=== PATIENT | male | born 1955 | race Caucasian/White ===

== ENCOUNTER → 2016-05-12 | Outpatient (CLI) | payer BC ==
[~2016-05-12] MED LIST: CATHETER FLUSH 10 ML SYR IV PRN; CHOL100055 PO; CYAN500T2 PO; FEXO1TAB42 PO; IOHEXOL 350 MG/ML 100 ML (OMNIPAQUE 350) VIAL IV ONE; NS 100 ML (IVPB) BAG IV ONE; PNT40TEC PO; TEST200V3 IM
[2016-05-12 08:52] LABS: BLOOD UREA NITROGEN 15 MG/DL (7-18); BUN/CREATININE RATIO 14; CREATININE SERUM 1.05 MG/DL (0.60-1.30); GFR ESTIMATED > 60
--- NOTE | 2016-05-12 09:30 | Diagnostic Imaging Report ---
PROCEDURE: CT chest with contrast only. TECHNIQUE: Multiple contiguous axial images were obtained through the chest after administration of intravenous contrast. INDICATION: Followup pulmonary nodule. COMPARISON: 04/29/2015 FINDINGS: Evaluation of lung petit demonstrates benign calcified granuloma within the posterior right lower lobe. Slightly more superiorly also within the right lower lobe, there is a noncalcified 3-4 mm micronodule (image 36, series 2). This is stable compared to 04/29/2015. No other pulmonary nodules or masses are seen on either side. There is no focal consolidation, pleural effusion, or pneumothorax. Cardiomediastinal structures again demonstrate multiple slightly prominent mediastinal lymph nodes. Reference subcarinal lymph node measures approximately 1.3 cm in shortest axis dimension. This is stable compared to prior exam. Lymph node interposed between the trachea and SVC measures approximately 9 mm in shortest axis dimension. This too is stable. No new abnormal adenopathy is seen within the mediastinum, franky, nor axilla. Right thyroid lobe is absent. Bony structures show no acute abnormalities. No lytic or blastic bony lesions are seen. Included portions of the upper abdomen are unremarkable. IMPRESSION: 1. Stable pulmonary micronodule and benign calcified granuloma within the right lower lobe. 2. Stable slightly prominent mediastinal lymph nodes. 3. No adverse interval change. Dictated by: Dictated on workstation # [id number]
== END ==
LOC: RAD 08:02
PROVIDERS: ATTEND Nurse Practitioner Family
DX: R93.8 Abnormal findings on diagnostic imaging of other specified body structures (principal); R91.1 Solitary pulmonary nodule
CPT/HCPCS: 36415; 71260; 82565; 84520

== ENCOUNTER → 2016-10-19 | Outpatient (CLI) | payer BC ==
[~2016-10-19] MED LIST changes: -CATHETER FLUSH 10 ML SYR IV PRN; -IOHEXOL 350 MG/ML 100 ML (OMNIPAQUE 350) VIAL IV ONE; -NS 100 ML (IVPB) BAG IV ONE
--- NOTE | 2016-10-19 11:27 | Diagnostic Imaging Report ---
PROCEDURE: US Thyroid. TECHNIQUE: Multiple real-time grayscale images were obtained of the thyroid in various projections. Indication: Followup thyroid nodules. Comparison: 10/09/2015 and 04/02/2015. Discussion: The right thyroid gland is surgically absent. No abnormal mass or fluid within the right thyroidectomy bed. The left thyroid gland is normal in echotexture and size with normal color Doppler blood flow. The left thyroid measures 4.8 x 2.1 x 1.9 cm. Hypoechoic nodules are again noted within the left gland measuring 6 mm and 4 mm respectively, stable. Given long-term stability, these nodules are statistically benign. Recommend yearly sonographic followup. No new nodule identified. No abnormal adjacent lymph nodes identified. Impression: 1. Stable subcentimeter nodules within the left thyroid gland, statistically benign. 2. Status post right thyroidectomy. Dictated by: Dictated on workstation # [id number]
== END | disposition home or self-care (01) ==
LOC: RAD 08:36
PROVIDERS: ATTEND Plastic Surgery Plastic Surgery Within the Head and Neck
DX: E04.2 Nontoxic multinodular goiter (principal); E89.0 Postprocedural hypothyroidism
CPT/HCPCS: 76536

== ENCOUNTER 2016-10-29 06:25 | Outpatient (CLI) | payer BC ==
[2016-10-29] MEDS ORDERED: THYR32.57 PO (14:32)
== END 2016-10-29 14:37 ==
DX: Z01.818 Encounter for other preprocedural examination (principal); Z80.0 Family history of malignant neoplasm of digestive organs

== ENCOUNTER 2016-11-02 07:52 | Day surgery (SDC) | payer BC ==
[~2016-11-02] VITALS: Ht 182.9 cm; Wt 96.6 kg
[~2016-11-02 07:52] MED LIST changes: +THYR32.57 PO
[2016-11-02 08:12] VITALS: BP 136/79
[2016-11-02] MEDS ORDERED: FLUMAZENIL (ROMAZICON) 0.1 MG/ML 5 ML VIAL INJ PRN (08:15)
[2016-11-02] MEDS ORDERED: NS IV 500 ML 500 ML IV SCH (08:15)
[2016-11-02] MEDS ORDERED: NALOXONE 0.4 MG/ML 1 ML (NARCAN) VIAL IVP PRN (08:15)
[2016-11-02] MEDS ORDERED: fentaNYL INJECTION 100 MCG/2 ML AMP ONE ×2 (09:02)
[2016-11-02] MEDS ORDERED: MIDAZOLAM 2 MG/2 ML (VERSED) VIAL ONE ×4 (09:03)
[2016-11-02] MEDS: fentaNYL INJECTION 100 MCG/2 ML AMP IVP PRN ×2 (09:18→09:24)
[2016-11-02] MEDS: MIDAZOLAM 2 MG/2 ML (VERSED) VIAL IVP PRN ×2 (09:19→09:25)
--- NOTE | 2016-11-02 09:41 | Conscious Sedation/ASA ---
Conscious Sedation Pre-Proced Time Reviewed: 08:55 ASA Class: 2 Airway Mallampati Classification: (augustine appropriate class) I. II. III, IV Lungs Heart ASA score ASA 1: a normal healthy patient ASA 2: a patient with a mild systemic disease (mid diabetes, controlled hypertension, obesity ASA 3: a patient with a severe systemic disease that limits activity (angina , COPD, prior Myocardial infarction) ASA 4: a patient with an incapacitating disease that is a constant threat to life (CHF, renal failure) ASA 5: a moribund patient not expected to survive 24 hrs. (ruptured aneurysm) ASA 6: a declared brain patient whose organs are being harvested. For emergent operations, add the letter E after the classification Grade 1 Sedation Plan: Discussed options with patient/fam Note The patient is an appropriate candidate to undergo the planned procedure, sedation, and anesthesia. The patient immediately re-assessed prior to indication. IZABEL NATHAN MD Nov 02, 2016 9:41 am
--- NOTE | 2016-11-02 09:42 | Endoscopy Procedure Report ---
Endoscopy Report Date: Nov 02, 2016 Preoperative Diagnosis: screening. Family history of colon cancer Study Performed: Colonoscopy Procedure Instrument: Colonoscope Endo Procedure/Findings Findings 1.: Normal Recommendations: Recommendations: 1.: Colonscopy in 5 years Copy Copies To 1: JOSHUA JOHN XAVIER M MD Nov 02, 2016 9:42 am
--- NOTE | 2016-11-02 09:42 | Discharge Inst-Simple/Standard ---
Discharge Inst-Standard Discharge Medications New, Converted or Re-Newed RX: Other Patient Instructions/Follow Up Plan of Care/Instructions/FU: repeat colonoscopy in 5 years Activity as Tolerated: Yes Discharge Diet: No Restrictions IZABEL NATHAN MD Nov 02, 2016 9:42 am
[2016-11-02 10:00] VITALS: BP 109/73
[2016-11-02 10:35] VITALS: BP 123/79
[2016-11-02 10:57] VITALS: BP 123/79
--- OUTSIDE RECORDS SUMMARY | 2016-11-02 21:20 | XMS REPORT | Continuity of Care Document ---
Author Author [facility] Organization [facility] Address Unknown Phone Unavailable Allergies Active Description Code Type Severity Reaction Onset Reported/Identified Relationship to Patient Clinical Status Yes No Known Drug Allergies [id number] Drug Allergy Unknown N/ A 10/29/2016 Medications Problems Date Dx Coded Attending Type Code Diagnosis Diagnosed By 07/28/2013 CARLOS LAU, LISA Costa Ot 455.0 INT HEMORRHOID W/O COMPL 07/28/2013 LISA GONZALEZ MD Ot 569.84 ANGIODYSPLASIA INTESTINE (W/O MENT OF HE 07/28/2013 LISA GONZALEZ MD Ot V16.0 FAMILY HX-GI MALIGNANCY 07/28/2013 LISA GONZALEZ MD Ot V76.51 SCREEN MAL NEOP-COLON 08/06/2014 Ot 786.50 08/06/2014 ALEXANDER LAU, CHEYENNE Vila Ot 241.9 08/06/2014 ALEXANDER LAU, CHEYENNE Vila Ot 785.6 08/06/2014 ALEXANDER LAU, CHEYENNE Vila Ot 786.2 08/06/2014 ALEXANDER LAU, CHEYENNE M Ot 785.6 08/06/2014 ALEXANDER LAU, CHEYENNE M Ot 786.05 08/06/2014 ALEXANDER LAU, CHEYENNE M Ot 786.2 08/06/2014 LISA GONZALEZ MD Ot V72.84 08/06/2014 ALEXANDER LAU, CHEYENNE M Ot 785.6 08/06/2014 ALEXANDER LAU, CHEYENNE M Ot 786.6 08/07/2014 ALEXANDER LAU, CHEYENNE M Ot 785.6 08/21/2014 CHEYENNE MUNOZ MD Ot 785.6 10/26/2014 SUDHEER WEATHERS DO Ot 793.11 10/26/2014 SUDHEER WEATHERS DO Ot 793.2 11/05/2014 SUDHEER WEATHERS DO Ot 327.23 OBSTRUCTIVE SLEEP APNEA (ADULT) (PEDIATR 11/05/2014 SUDHEER WEATHERS DO Ot 518.89 OTHER DISEASES OF LUNG, NEC 11/05/2014 SUDHEER WEATHERS DO Ot 530.81 ESOPHAGEAL REFLUX 11/05/2014 SUDHEER WEATHERS DO Ot 793.11 SOLITARY PULMONARY NODULE 11/06/2014 SUDHEER WEATHERS DO Ot 793.11 11/06/2014 SUDHEER WEATHERS DO Ot 793.2 11/15/2014 SUDHEER WEATHERS DO Ot 793.11 11/15/2014 SUDHEER WEATHERS DO Ot 793.2 11/15/2014 SUDHEER WEATHERS DO Ot 793.11 11/15/2014 SUDHEER WEATHERS DO Ot 793.2 04/18/2015 JOSHUA JOHN DO Ot E01.0 05/17/2015 SUDHEER WEATHERS DO Ot R91.1 10/09/2015 CHEYENNE MUNOZ MD Ot 241.9 NONTOX NODUL GOITER NOS 10/09/2015 CHEYENNE MUNOZ MD Ot 785.6 ENLARGEMENT LYMPH NODES 10/09/2015 CHEYENNE MUNOZ MD Ot 786.2 COUGH 10/09/2015 CHEYENNE MUNOZ MD Ot 785.6 ENLARGEMENT LYMPH NODES 10/09/2015 CHEYENNE MUNOZ MD Ot 786.05 SHORTNESS OF BREATH 10/09/2015 CHEYENNE MUNOZ MD Ot 786.2 COUGH 10/09/2015 CARLOS LAU, LISA Costa Ot V72.84 EXAM PRE-OPERATIVE NOS 10/09/2015 CHEYENNE MUNOZ MD Ot 785.6 ENLARGEMENT LYMPH NODES 10/09/2015 CHEYENNE MUNOZ MD Ot 786.6 CHEST SWELLING/MASS/LUMP 10/09/2015 CHEYENNE MUNOZ MD Ot 785.6 ENLARGEMENT LYMPH NODES 10/09/2015 SUDHEER WEATHERS DO Ot 793.11 SOLITARY PULMONARY NODULE 10/09/2015 SUDHEER WEATHERS DO Ot 793.2 NOSP (ABN) FINDINGS ON RADIOLOGICAL OT 10/09/2015 SUDHEER WEATHERS DO Ot 793.11 SOLITARY PULMONARY NODULE 10/09/2015 SUDHEER WEATHERS DO Ot 793.2 NOSP (ABN) FINDINGS ON RADIOLOGICAL OT 10/09/2015 SUDHEER WEATHERS DO Ot 793.11 SOLITARY PULMONARY NODULE 10/09/2015 SUDHEER WEATHERS DO Ot 793.2 NOSP (ABN) FINDINGS ON RADIOLOGICAL OT 10/09/2015 SUDHEER WEATHERS DO Ot R91.1 SOLITARY PULMONARY NODULE 10/09/2015 JOSHUA JOHN DO Ot 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 ( ENDEM 10/10/2015 HIRAL LAU, YASMIN Gaytan Ot E04.2 NONTOXIC MULTINODULAR GOITER 10/25/2015 HIRAL LAU, YASMIN Gaytan Ot E04.2 NONTOXIC MULTINODULAR GOITER 12/24/2015 ALEXANDER LAU, CHEYENNE Vila Ot 241.9 NONTOX NODUL GOITER NOS 12/24/2015 CHEYENNE MUNOZ MD Ot 785.6 ENLARGEMENT LYMPH NODES 12/24/2015 CHEYENNE MUNOZ MD Ot 786.2 COUGH 12/24/2015 CHEYENNE MUNOZ MD Ot 785.6 ENLARGEMENT LYMPH NODES 12/24/2015 CHEYENNE MUNOZ MD Ot 786.05 SHORTNESS OF BREATH 12/24/2015 CHEYENNE MUNOZ MD Ot 786.2 COUGH 12/24/2015 CARLOS LAU, LISA Costa Ot V72.84 EXAM PRE-OPERATIVE NOS 12/24/2015 CHEYENNE MUNOZ MD Ot 785.6 ENLARGEMENT LYMPH NODES 12/24/2015 CHEYENNE MUNOZ MD Ot 786.6 CHEST SWELLING/MASS/LUMP 12/24/2015 CHEYENNE MUNOZ MD Ot 785.6 ENLARGEMENT LYMPH NODES 12/24/2015 SUDHEER WEATHERS DO Ot 793.11 SOLITARY PULMONARY NODULE 12/24/2015 SUDHEER WEATHERS DO Ot 793.2 NOSP (ABN) FINDINGS ON RADIOLOGICAL OT 12/24/2015 SUDHEER WEATHERS DO Ot 793.11 SOLITARY PULMONARY NODULE 12/24/2015 SUDHEER WEATHERS DO Ot 793.2 NOSP (ABN) FINDINGS ON RADIOLOGICAL OT 12/24/2015 SUDHEER WEATHERS DO Ot 793.11 SOLITARY PULMONARY NODULE 12/24/2015 SUDHEER WEATHERS DO Ot 793.2 NOSP (ABN) FINDINGS ON RADIOLOGICAL OT 12/24/2015 SUDHEER WEATHERS DO Ot R91.1 SOLITARY PULMONARY NODULE 12/24/2015 JOSHUA JOHN DO Ot 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 ( ENDEM 12/24/2015 HIRAL LAU, YASMIN Gaytan Ot E04.2 NONTOXIC MULTINODULAR GOITER 12/25/2015 JOSHUA JOHN DO Ot R42 DIZZINESS AND GIDDINESS 01/09/2016 JOSHUA JOHN DO Ot R42 DIZZINESS AND GIDDINESS 03/30/2016 ALEXANDER LAU, CHEYENNE Vila Ot 241.9 NONTOX NODUL GOITER NOS 03/30/2016 ALEXANDER LAU, CHEYENNE Vila Ot 785.6 ENLARGEMENT LYMPH NODES 03/30/2016 ALEXANDER LAU, CHEYENNE Vila Ot 786.2 COUGH 03/30/2016 CHEYENNE MUNOZ MD Ot 785.6 ENLARGEMENT LYMPH NODES 03/30/2016 ALEXANDER LAU, CHEYENNE Vila Ot 786.05 SHORTNESS OF BREATH 03/30/2016 CHEYENNE MUNOZ MD Ot 786.2 COUGH 03/30/2016 CARLOS LAU, LISA Costa Ot V72.84 EXAM PRE-OPERATIVE NOS 03/30/2016 ALEXANDER LAU, CHEYENNE Vila Ot 785.6 ENLARGEMENT LYMPH NODES 03/30/2016 CHEYENNE MUNOZ MD Ot 786.6 CHEST SWELLING/MASS/LUMP 03/30/2016 CHEYENNE MUNOZ MD Ot 785.6 ENLARGEMENT LYMPH NODES 03/30/2016 SUDHEER WEATHERS DO Ot 793.11 SOLITARY PULMONARY NODULE 03/30/2016 SUDHEER WEATHERS DO M Ot 793.2 NOSP (ABN) FINDINGS ON RADIOLOGICAL OT 03/30/2016 SUDHEER WEATHERS DO M Ot 793.11 SOLITARY PULMONARY NODULE 03/30/2016 SUDHEER WEATHERS DO M Ot 793.2 NOSP (ABN) FINDINGS ON RADIOLOGICAL OT 03/30/2016 SUDHEER WEATHERS DO M Ot 793.11 SOLITARY PULMONARY NODULE 03/30/2016 SARAHY ROSAS, SUDHEER M Ot 793.2 NOSP (ABN) FINDINGS ON RADIOLOGICAL OT 03/30/2016 SUDHEER WEATHERS DO M Ot R91.1 SOLITARY PULMONARY NODULE 03/30/2016 JOSHUA JOHN DO Ot 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 ( ENDEM 03/30/2016 HIRAL LAU, YASMIN Gaytan Ot E04.2 NONTOXIC MULTINODULAR GOITER 03/30/2016 JOSHUA JOHN DO Ot R42 DIZZINESS AND GIDDINESS 05/12/2016 CHEYENNE MUNOZ MD Ot 241.9 NONTOX NODUL GOITER NOS 05/12/2016 CHEYENNE MUNOZ MD Ot 785.6 ENLARGEMENT LYMPH NODES 05/12/2016 CHEYENNE MUNOZ MD Ot 786.2 COUGH 05/12/2016 CHEYENNE MUNOZ MD Ot 785.6 ENLARGEMENT LYMPH NODES 05/12/2016 CHEYENNE MUNOZ MD Ot 786.05 SHORTNESS OF BREATH 05/12/2016 CHEYENNE MUNOZ MD Ot 786.2 COUGH 05/12/2016 CARLOS LAU, LISA Costa Ot V72.84 EXAM PRE-OPERATIVE NOS 05/12/2016 CHEYENNE MUNOZ MD Ot 785.6 ENLARGEMENT LYMPH NODES 05/12/2016 CHEYENNE MUNOZ MD Ot 786.6 CHEST SWELLING/MASS/LUMP 05/12/2016 CHEYENNE MUNOZ MD Ot 785.6 ENLARGEMENT LYMPH NODES 05/12/2016 SUDHEER WEATHERS DO Ot 793.11 SOLITARY PULMONARY NODULE 05/12/2016 SUDHEER WEATHERS DO Ot 793.2 NOSP (ABN) FINDINGS ON RADIOLOGICAL OT 05/12/2016 SUDHEER WEATHERS DO Ot 793.11 SOLITARY PULMONARY NODULE 05/12/2016 SUDHEER WEATHERS DO Ot 793.2 NOSP (ABN) FINDINGS ON RADIOLOGICAL OT 05/12/2016 SUDHEER WEATHERS DO Ot 793.11 SOLITARY PULMONARY NODULE 05/12/2016 SUDHEER WEATHERS DO Ot 793.2 NOSP (ABN) FINDINGS ON RADIOLOGICAL OT 05/12/2016 SUDHEER WEATHERS DO Ot R91.1 SOLITARY PULMONARY NODULE 05/12/2016 JOSHUA JOHN DO Ot 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 ( ENDEM 05/12/2016 HIRAL LAU, YASMIN Gaytan Ot E04.2 NONTOXIC MULTINODULAR GOITER 05/12/2016 JOSHUA JOHN DO Ot R42 DIZZINESS AND GIDDINESS 05/20/2016 EDDIE MAE APRN Ot R91.1 SOLITARY PULMONARY NODULE 05/20/2016 EDDIE MAE APRN Ot R93.8 ABNORMAL FINDINGS ON DIAGNOSTIC IMAGING 10/14/2016 CHEYENNE MUNOZ MD Ot 241.9 NONTOX NODUL GOITER NOS 10/14/2016 CHEYENNE MUNOZ MD Ot 785.6 ENLARGEMENT LYMPH NODES 10/14/2016 CHEYENNE MUNOZ MD Ot 786.2 COUGH 10/14/2016 CHEYENNE MUNOZ MD Ot 785.6 ENLARGEMENT LYMPH NODES 10/14/2016 CHEYENNE MUNOZ MD Ot 786.05 SHORTNESS OF BREATH 10/14/2016 CHEYENNE MUNOZ MD Ot 786.2 COUGH 10/14/2016 CARLOS LAU, LISA Costa Ot V72.84 EXAM PRE-OPERATIVE NOS 10/14/2016 CHEYENNE MUNOZ MD Ot 785.6 ENLARGEMENT LYMPH NODES 10/14/2016 CHEYENNE MUNOZ MD Ot 786.6 CHEST SWELLING/MASS/LUMP 10/14/2016 CHEYENNE MUNOZ MD Ot 785.6 ENLARGEMENT LYMPH NODES 10/14/2016 SUDHERE WEATHERS DO Ot 793.11 SOLITARY PULMONARY NODULE 10/14/2016 SUDHEER WEATHERS DO Ot 793.2 NOSP (ABN) FINDINGS ON RADIOLOGICAL OT 10/14/2016 SUDHEER WEATHERS DO Ot 793.11 SOLITARY PULMONARY NODULE 10/14/2016 SUDHEER WEATHERS DO Ot 793.2 NOSP (ABN) FINDINGS ON RADIOLOGICAL OT 10/14/2016 SUDHEER WEATHERS DO Ot 793.11 SOLITARY PULMONARY NODULE 10/14/2016 SUDHEER WEATHERS DO Ot 793.2 NOSP (ABN) FINDINGS ON RADIOLOGICAL OT 10/14/2016 SUDHEER WEATHERS DO Ot R91.1 SOLITARY PULMONARY NODULE 10/14/2016 JOSHUA JOHN DO Ot 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 ( ENDEM 10/14/2016 YASMIN BLACKMAN MD Ot E04.2 NONTOXIC MULTINODULAR GOITER 10/14/2016 EDDIE MAE APRN Ot R91.1 SOLITARY PULMONARY NODULE 10/14/2016 EDDIE MAE APRN Ot R93.8 ABNORMAL FINDINGS ON DIAGNOSTIC IMAGING 10/14/2016 JOSHUA JOHN DO Ot R42 DIZZINESS AND GIDDINESS 10/19/2016 YASMIN BLACKMAN MD Ot E04.2 NONTOXIC MULTINODULAR GOITER 10/19/2016 HIRAL LAU, YASMIN Gaytan Ot E89.0 POSTPROCEDURAL HYPOTHYROIDISM 10/25/2016 HIRAL LAU, YASMIN Gaytan Ot E04.2 NONTOXIC MULTINODULAR GOITER 10/25/2016 HIRAL LAU, YASMIN Gaytan Ot E89.0 POSTPROCEDURAL HYPOTHYROIDISM 10/29/2016 HIRAL LAU, YASMIN Gaytan Ot E04.2 NONTOXIC MULTINODULAR GOITER 10/29/2016 YASMIN BLACKMAN MD Ot E89.0 POSTPROCEDURAL HYPOTHYROIDISM Procedures Results Encounters ACCT No. Visit Date/Time Discharge Status Pt. Type Provider Facility Loc./Unit Complaint [id number] 10/29/2016 06:25:00 2016 14:37:00 DIS Outpatient IZABEL NATHAN MD [facility] PREOP COLONOSCOPY [id number] 04/02/2015 10:46:00 2014 23:59:59 CLS Outpatient JOSHUA JOHN DO [facility] RAD ENLARGED THYROID [id number] 11/05/2014 11:17:00 2014 15:20:00 DIS Outpatient SUDHEER WEATHERS DO [facility] SDC ABNORMAL CT; LUNG NODULE [id number] 10/31/2014 06:58:00 2014 23:59:59 CLS Outpatient SUDHEER WEATHERS DO [facility] RT ABNORMAL CT [id number] 10/30/2014 14:26:00 2014 23:59:59 CLS Outpatient SUDHEER WEATHERS DO [facility] PREOP ABNORMAL CT; LUNG NODULE [id number] 10/24/2014 07:46:00 2014 23:59:59 CLS Outpatient SUDHEER WEATHERS DO [facility] RAD ABNORMAL CT, LUNG NODULE [id number] 08/06/2014 07:52:00 2014 23:59:59 CLS Outpatient CHEYENNE MUNOZ MD [facility] RAD F/U HILAR ADENOPATHY [id number] 01/22/2014 08:10:00 2013 23:59:59 CLS Outpatient ALEXANDER LAU, CHEYENNE Vila [facility] RAD FOLLOW UP,ENLARGED LYMPH NODES [id number] 07/28/2013 07:56:00 2013 10:25:00 DIS Outpatient LISA GONZALEZ MD [facility] SDC SCREENING [id number] 07/27/2013 10:43:00 2013 23:59:59 CLS Outpatient LISA GONZALEZ MD [facility] PREOP SCREENING [id number] 07/19/2013 12:05:00 2013 23:59:59 CLS Outpatient ALEXANDER LAU, CHEYENNE Vila [facility] RAD COUGH,SOA [id number] 11/16/2012 07:46:00 2012 23:59:59 CLS Outpatient ALEXANDER LAU, CHEYENNE Vila [facility] RAD RT CARTOID ENLARGEMENT, RT SIDED FACIAL SWELLING [id number] 11/02/2016 09:00:00 PEN Preadmit JAC LAU, IZABEL Vila [facility] ENDO FAMILY HISTORY COLON CANCER [id number] 10/19/2016 08:36:00 ACT Outpatient YASMIN BLACKMAN MD [facility] RAD E04.2 [id number] 05/12/2016 08:02:00 ACT Outpatient EDDIE MAE APRN [facility] RAD LUNG NODULE [id number] 12/24/2015 13:48:00 ACT Outpatient JOSHUA JOHN DO [facility] RAD RECURRENT VERTIGO [id number] 10/09/2015 07:40:00 ACT Outpatient YASMIN BLACKMAN MD [facility] RAD LEFT THYROID NODULE/GOITER [id number] 04/29/2015 08:10:00 ACT Outpatient SUDHEER WEATHERS DO [facility] RAD LUNG NODULE,ABNORMAL CT [id number] 08/06/2014 07:56:00 Document Registration [id number] 12/17/2009 06:58:00 Document Registration
--- NOTE | 2016-11-02 21:52 | OPERATIVE REPORT ---
DATE OF SERVICE: 11/02/2016 PROCEDURE: Screening colonoscopy. SURGEON: Izabel Nathan MD INDICATION FOR PROCEDURE: This gentleman came in for screening colonoscopy. He reported a family history of colon cancer in several of his family members. Informed consent was obtained after reviewing the procedure in detail. DESCRIPTION OF PROCEDURE: He was placed in left lateral decubitus position and his vital signs were monitored. Conscious sedation was achieved using Versed and fentanyl. Examination of the perianal area revealed external hemorrhoids. Digital examination was otherwise unremarkable. The colonoscope was then introduced into the rectum and advanced all the way up to the cecum. It was then withdrawn slowly and the mucosa examined in a systematic fashion. There was no abnormality. He tolerated the procedure well and was taken back to the nursing area in a stable condition. IMPRESSION: Screening colonoscopy. No polyps. Incidental hemorrhoids. Will treat conservatively. Positive family history and therefore screening examination in 5 years would be reasonable. Job ID: [id number] DocumentID: [id number] Dictated Date: 11/02/2016 09:41:17 Irradiated Fuel Handler Date: 11/02/2016 14:20:50 Dictated By: IZABEL NATHAN MD MTDD
== END 2016-11-02 10:50 | disposition home or self-care (01) ==
LOC: ENDO 07:52
PROVIDERS: ATTEND Surgery
DX: Z12.11 Encounter for screening for malignant neoplasm of colon (principal); Z80.0 Family history of malignant neoplasm of digestive organs; K21.9 Gastro-esophageal reflux disease without esophagitis; E03.9 Hypothyroidism, unspecified

== ENCOUNTER → 2017-09-22 | Outpatient (CLI) | payer BC ==
--- NOTE | 2017-09-24 08:41 | Diagnostic Imaging Report ---
Exam: Ultrasound thyroid. Date: September 22, 2017. Comparison: Ultrasound thyroid 10/19/2016. 10/09/2015. 04/02/2015. CT neck and chest 11/16/2012. Indication: 62-year-old male, thyroid nodule. Findings: Two-dimensional grayscale and color Doppler images were obtained of the thyroid. Right lobe of the thyroid: The right lobe of the thyroid is not seen and may be surgically absent or hypoplastic. Left lobe of the thyroid: In the inferior aspect of the left lobe of the thyroid, there is a hypoechoic nodule measuring 6 x 6 x 5 mm in size without internal blood flow. There is a subjacent similar appearing 4 x 4 x 4 mm left thyroid nodule. The left lobe of the thyroid measures 5.5 x 2.1 x 2.1 cm. Impression: 1. Subcentimeter hypoechoic left-sided thyroid nodules without dominant or suspicious appearing thyroid nodule. 2. The right lobe of the thyroid is not seen and may be surgically absent or hypoplastic. Dictated by: Dictated on workstation # [id number]
== END ==
LOC: RAD 15:57
PROVIDERS: ATTEND Internal Medicine
DX: E04.2 Nontoxic multinodular goiter (principal)
CPT/HCPCS: 76536

== ENCOUNTER → 2020-04-03 | Outpatient (CLI) | payer BC ==
--- NOTE | 2020-04-03 18:52 | Diagnostic Imaging Report ---
PROCEDURE: MR imaging of the brain without contrast. TECHNIQUE: Multiplanar, multisequence MR imaging of the brain was performed without contrast. INDICATION: Dizzy spells. FINDINGS: The previous MRI brain exam of 12/24/2015 failed to show any sign of a significant abnormality. On the diffusion series of this exam there is no abnormal signal arising from the brain to suggest an area of acute ischemia. There is no mass, shift of the midline or hemorrhage to indicate an acute abnormality either. The FLAIR series is unremarkable for any evidence for demyelinating disease or for encephalomalacia related to microvascular ischemia. The ventricles are not abnormally dilated and stable in size when compared to the prior exam. The sella is not enlarged and the expected carotid flow voids are evident, bilaterally. The orbits are symmetrical and within normal limits. The sinuses are generally clear. There is a 1 cm retention cyst in the right maxillary antrum. The 7th and 8th nerve complexes are unremarkable. IMPRESSION: 1. There is no evidence for an acute intracranial abnormality. 2. When compared to the prior study there has been no significant change. Dictated by: Dictated on workstation # [id number]
== END ==
LOC: RAD 15:50
PROVIDERS: ATTEND Student in an Organized Health Care Education/Training Program
DX: R51.9 Headache, unspecified (principal); R42 Dizziness and giddiness
CPT/HCPCS: 70551

== ENCOUNTER → 2021-12-24 | Outpatient (CLI) | payer BC, OTHER ==
[~2021-12-24] VITALS: Ht 182.9 cm; Wt 91.1 kg
[~2021-12-24] MED LIST changes: +LISI10TA25 PO
== END | disposition home or self-care (01) ==
LOC: PREOP 05:32
PROVIDERS: ATTEND Surgery
DX: Z01.818 Encounter for other preprocedural examination (principal); Z12.11 Encounter for screening for malignant neoplasm of colon

== ENCOUNTER 2021-12-31 09:47 | Day surgery (SDC) | payer MEDICARE, OTHER ==
[~2021-12-31] VITALS: Ht 182 cm; Wt 91.1 kg
[2021-12-31] MEDS ORDERED: LACTATED RINGERS 1,000 ML IV STA (09:59)
[2021-12-31] MEDS ORDERED: LIDOCAINE JELLY 2% 6 ML SYRINGE MM PRN (10:00)
[2021-12-31 10:05] VITALS: BP 144/84
--- NOTE | 2021-12-31 11:09 | Progress Note-Pre Operative ---
Pre-Operative Progress Note Date of Available H&P: Dec 31, 2021 Date H&P Reviewed: Dec 31, 2021 Time H&P Reviewed: 10:30 History & Physical: No changes noted Pre-Operative Diagnosis: screening/FH GILBERTO BLACK MD Dec 31, 2021 11:09
--- NOTE | 2021-12-31 11:10 | Discharge Inst-Surgical ---
D/C Lap Instructions-WAYNE Follow Up Activity as tolerated High Fiber Diet 25g or more per day Avoid Alcohol, Caffeine, Spicy [place] and Acid foods. Drink 64 fluid oz or more of fluids per day. Symptoms to Report: Fever over 101 degree F, Nausea/Vomiting If any problems/questions: Contact your physician or go to Emergency Room GILBERTO BLACK MD Dec 31, 2021 11:10
[2021-12-31] MEDS ORDERED: ONDANSETRON 4 MG (ZOFRAN) ORAL DISSOLVE TAB PO PRN (11:15)
[2021-12-31] MEDS ORDERED: ONDANSETRON 4 MG/2 ML (SDV) Z0FRAN IVP PRN (11:15)
[2021-12-31] MEDS ORDERED: PROPOFOL INJECTION 50 ML IV ONE (12:01)
[2021-12-31 12:40] VITALS: BP 101/60
[2021-12-31 12:45] VITALS: BP 109/63
[2021-12-31 12:50] VITALS: BP 120/70
--- NOTE | 2021-12-31 12:51 | Progress Note-Post Operative ---
Post-Operative Progess Note Surgeon (s)/Epic Analyst (s) Surgeon GILBERTO BLACK MD Epic Analyst: none Pre-Operative Diagnosis screening/FH Post-Operative Diagnosis mild chronic stage 2 ext and int hemorrhoids. Procedure & Operative Findings Date of Procedure 12/31/21 Procedure Performed/Findings colonoscopy Anesthesia Type mac Estimated Blood Loss Estimated blood loss (mL): minimal Specimens/Packing Specimens Removed none GILBERTO BLACK MD Dec 31, 2021 12:51
[2021-12-31 13:20] VITALS: BP 152/92
[2021-12-31 13:35] VITALS: BP 152/92
--- NOTE | 2021-12-31 14:35 | Anesthesia-General Post-Op ---
MAC Patient Condition Mental Status/LOC: Same as Preop Cardiovascular: Satisfactory Nausea/Vomiting: Absent Respiratory: Satisfactory Pain: Controlled Complications: Absent Post Op Complications Complications None Follow Up Care/Instructions Patient Instructions None needed. Anesthesiology Discharge Order Discharge Order Patient is doing well, no complaints, stable vital signs, no apparent adverse anesthesia problems. No complications reported per nursing. AGUSTIN ZURITA CRNA Dec 31, 2021 14:35
--- NOTE | 2021-12-31 20:55 | OPERATIVE REPORT ---
DATE OF SERVICE: 12/31/2021 ATTENDING PRIMARY CARE PHYSICIAN: Dr. Vannessa Louis. PREOPERATIVE DIAGNOSIS: Screening colonoscopy with family history of colon cancer. POSTOPERATIVE DIAGNOSES: Mild chronic stage II external and internal hemorrhoids. PROCEDURE: Colonoscopy. SURGEON: Gilberto Black MD ANESTHESIA: Monitored anesthesia care. ESTIMATED BLOOD LOSS: Minimal. FINDINGS: Mild chronic stage II external and internal hemorrhoids. DISPOSITION: The patient tolerated the procedure well. INDICATIONS: The patient is a 66-year-old male referred over to us for screening colonoscopy. His last colonoscopy was approximately 5 years ago and he does have a family history of colon cancer with his father and brother having the disease. He does not report any major issues with diarrhea nor constipation as well as no red blood per rectum nor any dark tarry stools. DESCRIPTION OF PROCEDURE: The patient was brought to the endoscopy suite, laid in the left lateral decubitus position. After adequate IV pain and sedative medications and monitored anesthesia care, digital rectal examination was performed. Mild chronic stage II external and internal hemorrhoids were identified, which were not actively edematous nor inflamed and no bleeding. Normal sphincter tone was felt and there were no palpable masses. Prostate gland was palpable and appeared normal. The endoscope was then intubated to the anus and rectum gently insufflated. The endoscope was then advanced through the valves of [place] of the rectum with no polyps or any neoplasms identified. We then proceeded through the sigmoid colon where no diverticulosis identified. The endoscope was then advanced to the remainder of the descending, transverse and ascending colon to the cecum, which were normal. There were no polyps or any neoplasms identified throughout the colon or rectum. The endoscope was then slowly withdrawn with taking a second look and suctioning of residual air with no additional findings. The patient tolerated the procedure well. We will recommend continued medical management with a high fiber diet with at least 30 grams of fiber daily as well as significant amounts of water to promote soft stools on a daily basis. Due to his first-degree family history of colon cancer, we will recommend followup colonoscopy in 5 years. Job ID: [id number] DocumentID: [id number] Dictated Date: 12/31/2021 12:43:05 Football Pad Repairer Date: 12/31/2021 20:54:44 Dictated By: GILBERTO BLACK MD
== END 2021-12-31 13:47 | disposition home or self-care (01) ==
LOC: ENDO 09:47
PROVIDERS: ATTEND Surgery
DX: Z12.11 Encounter for screening for malignant neoplasm of colon (principal); Z80.0 Family history of malignant neoplasm of digestive organs; K64.1 Second degree hemorrhoids; K64.4 Residual hemorrhoidal skin tags